=== PATIENT | male | born 1930 | race Caucasian/White ===

== ENCOUNTER 2021-07-20 19:31 | Emergency (ER) | payer BC, MEDICARE ==
[2021-07-20] MEDS: Lidocaine 1% 5 ML VIAL INJECT ONE (22:39)
[2021-07-20] MEDS: Lidocaine 1% 5 ML VIAL ONE (22:39)
[2021-07-20] MEDS ORDERED: Bacitracin Oint 1 GM U/D Packet TOP ONE (22:57)
[2021-07-20] MEDS ORDERED: Lidocaine 1% PF 2 ML SDV INFILT ONE (22:57)
== END 2021-07-20 23:30 | disposition home or self-care (01) ==
LOC: JP.ED 19:31
DX: S01.311A Laceration without foreign body of right ear, initial encounter (principal); N40.0 Benign prostatic hyperplasia without lower urinary tract symptoms; Z79.899 Other long term (current) drug therapy; W18.30XA Fall on same level, unspecified, initial encounter
CPT/HCPCS: 12013; 36415; 70450; 72125; 80048; 85025; 93010; 99283; 99284-25

== ENCOUNTER 2021-08-07 18:11 | Emergency (ER) | payer MEDICARE ==
[2021-08-07] MEDS ORDERED: Lidocaine 1% with EPINEPHrine 1:100,000 50 ML MDV SUBCUT STA (18:45)
== END 2021-08-07 19:19 ==
LOC: JP.ED 18:11
DX: S01.01XA Laceration without foreign body of scalp, initial encounter (principal); I10 Essential (primary) hypertension; N40.0 Benign prostatic hyperplasia without lower urinary tract symptoms; Z79.899 Other long term (current) drug therapy; W19.XXXA Unspecified fall, initial encounter
CPT/HCPCS: 12002; 99282; 99284-25